=== PATIENT | female | born 1970 | race Caucasian/White ===

== ENCOUNTER 2018-07-30 11:19 | Emergency (ER) | payer OTHER ==
[~2018-07-30] VITALS: Ht 162.6 cm; Wt 73.0 kg
[2018-07-30 11:23] VITALS: BP 147/68; PULSE 72; RESP 18; Ht 162.6 cm; Wt 73.0 kg
--- NOTE | 2018-07-30 13:07 | ERD ---
ER Documentation Chief Complaint Chief Complaint rt side lower back pain radiating to rt leg x 4 days HPI 58-year-old female, presents to the emergency department, complaining of worsening of right lower back pain radiating to the right lower extremity, that started 2 weeks ago and has been getting worse during the last 4 days. No history of recent trauma. The pain is dull, constant, worsened by flexion and lateral rotation. The patient denies distal weakness, numbness or tingling, no incontinence. The patient has been taking ibuprofen without improvement of the symptoms. No history of fever, chills or rashes. No abdominal pain. ROS All systems reviewed and are negative except as per history of present illness. Medications Home Meds Active Scripts Ciprofloxacin Hcl* (Ciprofloxacin Hcl*) 250 Mg Tablet, 250 MG PO BID, #14 TAB Prov:MICHAEL ROPER MD 07/30/18 Baclofen* (Baclofen*) 10 Mg Tablet, 10 MG PO QHS for 10 Days, #10 TAB Prov:MICHAEL ROPER MD 07/30/18 Ibuprofen* (Motrin*) 400 Mg Tab, 400 MG PO Q6H PRN for PAIN AND OR ELEVATED TEMP, #30 TAB Prov:MICHAEL ROPER MD 07/30/18 Allergies Allergies: Coded Allergies: No Known Allergy (Unverified , 07/30/18) PMhx/Soc Medical and Surgical Hx: pt denies Medical Hx, pt denies Surgical Hx Hx Alcohol Use: No Hx Substance Use: No Hx Tobacco Use: No Smoking Status: Never smoker FmHx Family History: No diabetes, No coronary disease Physical Exam Vitals Vital Signs Date Temp Pulse Resp B/P (MAP) Pulse Ox O2 O2 Flow FiO2 Time Delivery Rate 07/30/18 98.0 72 18 147/68 98 11:23 (94) Physical Exam Patient is in no acute distress, vital signs stable. Alert and fully oriented. EYES: PERRLA, EOMI, Sclera and conjunctiva appear normal. EARS: Canals clear, tympanic membranes WNL THROAT: Normal oropharynx. NECK: Supple, No lymphadenopathy. Full ROM without pain or tenderness. HEART: RRR, no rubs, murmurs, clicks or gallops. LUNGS: Clear to auscultation. ABDOMEN: Soft, non-tender without masses or hepatosplenomegaly. EXTREMITIES: No edema bilaterally. BACK: Normal inspection, no bruises, no rashes, no deformity, decreased range of motion for lateral rotation and flexion. No vertebral tenderness, bilateral lower muscle spasm. NEURO: Cranial nerves grossly intact, no motor or sensory deficit Results 24 hrs Laboratory Tests Test 07/30/18 13:27 07/30/18 13:29 Bedside Urine pH (LAB) 5.5 Bedside Urine Protein (LAB) 1+ Bedside Urine Glucose (UA) 0.50% Bedside Urine Ketones (LAB) 4+ Bedside Urine Blood Negative Bedside Urine Nitrite (LAB) Positive Bedside Urine Leukocyte Esterase (L Negative POC Beta HCG, Qualitative NEGATIVE Current Medications Medications Dose Sig/Claude Start Time Status Last (Trade) Ordered Route PRN Stop Time Admin Dose Reason Admin Ketorolac 30 mg ONCE STAT 07/30/18 DC 07/30/18 Tromethamine IM 13:13 13:42 (Toradol) 07/30/18 13:26 Patient: ANABELA CHAN : 1970 Age: 48 Sex: F MR #: [id number] DOS: 07/30/18 1313 Ordering MD: MICHAEL ROPER MD Location: FTE Room/Bed: PROCEDURE: XR Lumbar Spine. CLINICAL INDICATION: Acute low back pain TECHNIQUE: Three views of the lumbar spine were obtained. COMPARISON: None. FINDINGS: Alignment of the lumbar spine is normal. Normal lumbar lordosis is preserved. Vertebral body heights are maintained. There is moderate intervertebral disc space narrowing at L4-L5. The remaining intervertebral disc spaces are preserved. There is mild to moderate lower lumbar spine facet osteoarthritis. No fracture or subluxation is identified. IMPRESSION: 1. Degenerative changes of the lower lumbar spine as above. Procedures/MDM At the time of discharge, patient nontoxic, ambulating, vital signs stable, no gross neurologic deficit. differential diagnosis include but not limited to: lumbar sprain/strain, sciatica, herniated disk, UTI less likely pyelo, kidney stone. Neurovascular exam grossly intact. no clinical findings suggestive of acute infectious process, no acute deformity, no edema, no rashes. Physical examination and clinical presentation consistent most likely with urinary tract infection and degenerative disc disease. During the ED course the patient received treatment with Toradol IM presenting overall improvement of the symptoms. Results and clinical impression discussed with the patient who agrees with management. The patient is stable to be treated outpatient and will be discharged home with recommendations and close monitoring The patient was informed that the evaluation in the emergency department has been done to rule out an acute emergency, therefore, chronic conditions like malignancy or autoimmune diseases have not been evaluated; therefore, the patient was instructed to follow up with the primary care provider in the next 48h. If symptoms persist, worsen or new symptoms develop, then patient should return to the ED immediately. Instructions explained and given to patient with acknowledgment and demonstrated understanding. Disclaimer: Inadvertent spelling and grammatical errors are likely due to EHR/dictation software use and do not reflect on the overall quality of patient care. Also, please note that the electronic time recorded on this note does not necessarily reflect the actual time of the patient encounter. Departure Diagnosis: Primary Impression: Degenerative joint disease of low back Additional Impression: UTI (urinary tract infection) Condition: Stable Additional Instructions: Muchas adele por [facility] para vasquez servicio. Esperamos que en vasquez visita a la grant de emergencia vasquez problema medico haya sido solucionado y que se sienta mucho mejor. Para estar seguros que vasquez mejoria sigue en proceso, le pedimos el favor de hacer donald lon de seguimiento medico con vasquez doctor primario en los proximos 2-4 martinez. Lleve con usted estos documentos y las medicinas recetadas. Si thanh sintomas empeoran, NO SE ESPERE, por favor regrese a grant de emergencia INMEDIATAMENTE. En asuncion que usted no tenga un mdico de atencin primaria: Llame al mdico o clnica comunitaria de referencia que aparece abajo trev la s horas de consultorio para hacer donald lon para que le vean. CLINICAS: [facility] [phone] [facility] [phone] [facility] [phone] [address] [facility] [phone] [address] [facility] [phone] [address] [facility]. [phone] MICHAEL BRICE MD July 30, 2018 13:07
[2018-07-30] MEDS ORDERED: KETOROLAC 30 MG INJ IM STA (13:13)
[2018-07-30] MEDS ORDERED: IBUP-1561 PO (14:04)
[2018-07-30] MEDS ORDERED: CIPR-193 PO (14:04)
[2018-07-30] MEDS ORDERED: BACL10TA PO (14:04)
== END 2018-07-30 13:25 | disposition home or self-care (01) ==
LOC: FTE 11:19 → EDBD 11:19 → FTE 13:25
DX: M47.896 Other spondylosis, lumbar region (principal); N39.0 Urinary tract infection, site not specified
CPT/HCPCS: 72100; 81003; 81025; 96372; J1885; Z7502

== ENCOUNTER 2018-08-28 15:26 | Emergency (ER) | payer OTHER ==
[~2018-08-28] VITALS: Ht 157.5 cm; Wt 74.0 kg
[~2018-08-28 15:26] MED LIST: BACL10TA PO; CIPR-193 PO; IBUP-1561 PO
[2018-08-28 15:29] VITALS: Ht 157.5 cm; Wt 74.0 kg
--- NOTE | 2018-08-28 16:27 | ERD ---
ER Documentation Chief Complaint Chief Complaint left lower back pain to the leg, sent by pcp HPI Patient is a 48-year-old female, past medical history of hysterectomy secondary to "precancer uterus", DM Type IIm who presents the ER for concerns of right- sided pelvic pain and right lower back pain radiating down her right leg x1 mo nth. Patient states she was seen here 1 month ago for her lower back pain. Patient was diagnosed with sciatica. Patient states she followed up with her primary care provider, Remy Pruitt, following her ER visit. Patient states at that time pelvic ultrasound was completed on 07-25-18. Today patient went to follow-up with her primary care physician to discuss ultrasound findings. Patient brings in ultrasound report which shows that patient is "status post hysterectomy. Several anechoic lesions were noted within the right ovary. There was no vascular flow noted. Likely represents cysts. However, cystic neoplasm cannot be entirely excluded. Follow-up in 1 to 2 months is recommended to ensure stability. Correlate with test to exclude ectopic ". Per referral note that patient brings in with her, patient has not followed up with MARKETING AND DEVELOPMENT COORDINATOR despite being given referral in 08/07/18. Patient denies any fevers or chills. Patient denies any nausea or vomiting. Patient denies any dysuria, frequency or urgency or hematuria. Patient states she does have an appointment with an MARKETING AND DEVELOPMENT COORDINATOR, does not recall name, next week. ROS All systems reviewed and are negative except as per history of present illness. Medications Home Meds Active Scripts Hydrocodone/Acetaminophen (Hilltop 5-325 Tablet) 1 Each Tablet, 1 TAB PO Q6H PRN for PAIN, #7 TAB Prov:MARCOS GUILLERMO PA-C 08/28/18 Ciprofloxacin Hcl* (Ciprofloxacin Hcl*) 250 Mg Tablet, 250 MG PO BID, #14 TAB Prov:MICHAEL ROPER MD 07/30/18 Baclofen* (Baclofen*) 10 Mg Tablet, 10 MG PO QHS for 10 Days, #10 TAB Prov:MICHAEL ROPER MD 07/30/18 Ibuprofen* (Motrin*) 400 Mg Tab, 400 MG PO Q6H PRN for PAIN AND OR ELEVATED TEMP, #30 TAB Prov:MICHAEL ROPER MD 07/30/18 Allergies Allergies: Coded Allergies: No Known Allergy (Unverified , 07/30/18) PMhx/Soc Hx Alcohol Use: No Hx Substance Use: No Hx Tobacco Use: No FmHx Family History: No diabetes Physical Exam Vitals Vital Signs Date Temp Pulse Resp B/P (MAP) Pulse Ox O2 O2 Flow FiO2 Time Delivery Rate 08/28/18 97.5 69 18 115/74 100 Room Air 21:52 (88) 08/28/18 98.2 80 20 120/71 98 15:29 (87) Physical Exam GENERAL: Well-developed, well-nourished female. Appears in no acute distress. Speaking in full sentences. HEAD: Normocephalic, atraumatic. EYES: Pupils are equally reactive bilaterally. EOMs grossly intact. No conjunctival erythema. ENT: Moist mucous membranes. No uvula deviation. No kissing tonsils. NECK: Supple. No meningismus. Normal range of motion of the neck. LUNG: Clear to auscultation bilaterally. No rhonchi, wheezing, rales or coarse breath sounds. HEART: Regular rate and rhythm. No murmurs, rubs or gallops. ABDOMEN: Soft, nondistended. Tender to palpation in the right lower quadrant.. Positive bowel sounds in all four quadrants. No rebound tenderness, no guarding. (-) McBurney's point tenderness. No CVA tenderness. BACK: No midline tenderness. Tender to palpation over the right paraspinal lumbar muscles. Positive straight leg raise on the right. EXTREMITIES: Equal pulses bilaterally. No peripheral clubbing, cyanosis or edema. No unilateral leg swelling. NEUROLOGIC: Alert and oriented. Moving all four extremities without any difficulty. Normal speech. Steady gait. SKIN: Normal color. Warm and dry. No rashes or lesions. Result Diagram: 08/28/18190908/28/181909 Results 24 hrs Laboratory Tests Test 08/28/18 16:48 08/28/18 16:52 08/28/18 19:10 Urine Color STRAW Urine Clarity CLEAR Urine pH 5.0 Urine Specific [place] 1.037 Urine Ketones 1+ mg/dL Urine Nitrite NEGATIVE mg/dL Urine Bilirubin NEGATIVE mg/dL Urine Urobilinogen NEGATIVE mg/dL Urine Leukocyte Esterase TRACE Jackie/ul Urine Microscopic RBC 1 /HPF Urine Microscopic WBC 10 /HPF Urine Squamous Epithelial Cells FEW /HPF Urine Hemoglobin NEGATIVE mg/dL Urine Glucose 3+ mg/dL Urine Total Protein NEGATIVE mg/dl POC Beta HCG, Qualitative NEGATIVE White Blood Count 8.8 10^3/ul Red Blood Count 4.48 10^6/ul Hemoglobin 13.2 g/dl Hematocrit 36.9 % Mean Corpuscular Volume 82.4 fl Mean Corpuscular Hemoglobin 29.5 pg Mean Corpuscular 35.8 g/dl Hemoglobin Concent Red Cell Distribution Width 12.4 % Platelet Count 286 10^3/UL Mean Platelet Volume 10.3 fl Immature Granulocytes % 0.700 % Neutrophils % 59.2 % Lymphocytes % 32.3 % Monocytes % 5.2 % Eosinophils % 1.9 % Basophils % 0.7 % Nucleated Red Blood Cells % 0.0 /100WBC Immature Granulocytes # 0.060 10^3/ul Neutrophils # 5.2 10^3/ul Lymphocytes # 2.8 10^3/ul Monocytes # 0.5 10^3/ul Eosinophils # 0.2 10^3/ul Basophils # 0.1 10^3/ul Nucleated Red Blood Cells # 0.0 10^3/ul Sodium Level 137 mmol/L Potassium Level 3.8 mmol/L Chloride Level 101 mmol/L Carbon Dioxide Level 26 mmol/L Anion Gap 10 Blood Urea Nitrogen 14 mg/dl Creatinine 0.44 mg/dl Est Glomerular Filtrat > 60 mL/min Rate mL/min Glucose Level 243 mg/dl Calcium Level 8.8 mg/dl Total Bilirubin 0.7 mg/dl Direct Bilirubin 0.00 mg/dl Indirect Bilirubin 0.7 mg/dl Aspartate Amino 19 IU/L Transf (AST/SGOT) Alanine 32 IU/L Aminotransferase (ALT/SGPT) Alkaline Phosphatase 77 IU/L Total Protein 7.3 g/dl Albumin 4.3 g/dl Globulin 3.00 g/dl Albumin/Globulin Ratio 1.43 CA 19-9 Antigen 25.1 U/ml CA 125 Antigen 5.7 U/ml Current Medications Medications Dose Sig/Claude Start Time Status Last (Trade) Ordered Route PRN Stop Time Admin Dose Reason Admin 1 tab ONCE ONCE 08/28/18 DC 08/28/18 Acetaminophen PO 16:30 16:48 / 08/28/18 16:31 Hydrocodone Bitart (Hilltop (5/325)) Procedures/MDM ED COURSE: The patient was stable throughout ED course. I kept the patient and/or family informed of laboratory and diagnostic imaging results throughout the ED course. DIAGNOSTIC IMAGING: Read by radiologist. [address] [address] Radiology Main Line: [phone] DIAGNOSTIC IMAGING REPORT Patient: ANABELA MONTENEGRO : 1970 Age: 48 Sex: F MR #: [id number] DOS: 08/28/18 1617 Ordering MD: MARCOS GUILLERMO PA-C Location: FTE Room/Bed: PROCEDURE: US Pelvis Non-OB CLINICAL INDICATION: Pelvic pain TECHNIQUE: Images were taken during real time trans pelvic interrogation. Color-flow and Doppler interrogation of the ovaries was performed. COMPARISON: None FINDINGS: Uterus: The uterus is not identified compatible with history of previous partial hysterectomy. Ovaries: The right ovary is not identified. The left ovary measures 3.1 x 2.5 x 1.7 cm and and contains a 1.4 cm simple- appearing cyst. Vascular flow is demonstrated in the left ovary on Doppler.. Adnexa: No adnexal mass is identified. Free intraperitoneal fluid: None visualized. IMPRESSION: 1. Absent uterus compatible with history of previous partial hysterectomy. 2. The right ovary is not identified. A 1.4 cm simple left ovarian cyst is evident. Vascular flow is demonstrated in the left ovary. 3. No adnexal mass or free fluid is identified. Physician Asaf Date Time Electronically viewed and signed by Physician Asaf on 08/28/2018 17:22 RH/ CC: MARCOS GUILLERMO PA-C [id number] Patient: ANABELA MONTENEGRO : 1970 Age: 48 Sex: F MR #: [id number] DOS: 08/28/18 1903 Ordering MD: MARCOS GUILLERMO PA-C Location: FTE Room/Bed: PROCEDURE: US Pelvis. CLINICAL INDICATION: Right pelvic pain TECHNIQUE: Multiple sonographic images of the pelvis were obtained utilizing endovaginal technique. The images were reviewed on a PACS workstation. COMPARISON: None. FINDINGS: The uterus appears to be surgically absent The right ovary appears normal and measures 2.6 x 1.6 x 1.4 cm. Blood flow is present. The left ovary is not visualized transvaginally. Right ovarian blood flow is documented. There is no significant free fluid in the pelvis. IMPRESSION: 1. Sonographically unremarkable right ovary with no evidence of torsion. 2. Apparent surgical absence of the uterus. 3. Nonvisualization of the left ovary transvaginally. RPTAT:AAJJ Physician Kevin Date Time Electronically viewed and signed by Physician Kevin on 08/28/2018 20:22 GW/ CC: MARCOS GUILLERMO PA-C [id number] PROCEDURES: None. MEDICATIONS GIVEN: Hilltop Patient tolerated medication well with no adverse reactions. Patient reported improvement in pain. MEDICAL DECISION MAKING: This is a 48-year-old female, past medical history of hysterectomy, DM type II, who presents the ER for concerns of right-sided pelvic pain and right-sided lower back pain radiating down her right leg x1 month. On 07-25-18, patient had a pelvic ultrasound which was ordered by her primary care provider. This ultrasound showed no vascular flow to the right ovary. Vital signs were reviewed. Patient was afebrile. Patient was not hypoxic. On exam, patient was noted to have mild tenderness to the right lower quadrant. No peritoneal signs were noted. Repeat ultrasound was obtained. Initial ultrasound was done transabdominally and right ovary was not visualized. A 1.4 cm simple cyst was noted on the left ovary and vascular flow was noted on this ultrasound. I discussed findings with my supervising physician Dr. Willis, who advised me to contact the MARKETING AND DEVELOPMENT COORDINATOR on-call Dr. Whittington. Dr. Whittington, came down to the ER and examined the patient. She advised me to repeat ultrasound transvaginally. Blood work was also obtained per Dr Whittington. She advised me to order cancer markers and advised to the patient to contact medical records for results in 2 to 3 days. Patient was advised to follow-up with her MARKETING AND DEVELOPMENT COORDINATOR when she receives this results. Dr. Whittington stated that she would sign out case to oncoming OBGYN. CBC showed no evidence of systemic infection or severe anemia. CMP showed no severe electrolyte abnormalities, acidosis, alkalosis, renal injury or liver injury. Patient's glucose is noted to be 243 however bicarb is within normal limits. Urine showed 1+ ketones. No evidence of DKA. Repeat ultrasound showed showed no evidence of ovarian torsion to the right ovary. This repeat ultrasound was discussed with oncoming MARKETING AND DEVELOPMENT COORDINATOR Dr. Hernandez who advised me to have patient follow-up with her MARKETING AND DEVELOPMENT COORDINATOR for further management of her symptoms. At this time, patient's presentation is most consistent with lower back pain as well as pelvic pain. Low suspicion for ectopic , ovarian torsion, tibial ovarian abscess, fibroid, nephrolithiasis, pyelonephritis, UTI, appendic itis, obstruction, cauda equina, epidural abscess, epidural hematoma. Patient was nontoxic, [id number] prior to discharge. PRESCRIPTIONS: Hilltop The patient has been prescribed Hilltop during this encounter. The patient has been warned about the use of narcotics. The patient should not drive or operate heavy machinery while taking this medication. The patient was also warned about the addictive properties of narcotic medications. Prescription of Narcan was given to the patient. DISCHARGE: At this time, patient is stable for discharge and outpatient management. I have instructed the patient to follow-up with his/her primary care physician in 1-2 days. I have discussed with the patient the possibility of needing to see a specialist for further workup and diagnostic studies if the pain persists. I have instructed the patient to promptly return to the ER at any time for any new or worsening symptoms including increased pain, nausea, vomiting, vaginal bleeding, weakness or fever. The patient and/or family expressed understanding of and agreement with this plan. All questions were answered. Home care instructions were provided. Disclaimer: Inadvertent spelling and grammatical errors are likely due to EHR/dictation software use and do not reflect on the overall quality of patient care. Also, please note that the electronic time recorded on this note does not necessarily reflect the actual time of the patient encounter. Departure Diagnosis: Primary Impression: Pelvic pain Additional Impression: Lower back pain Chronicity: acute Back pain laterality: right Sciatica presence: with sciatica Sciatica laterality: sciatica of right side Qualified Codes: M54.41 - Lumbago with sciatica, right side Patient Instructions: What Are Ovarian Cysts? Referrals: COMMUNITY CLINICS YOU HAVE RECEIVED A MEDICAL SCREENING EXAM AND THE RESULTS INDICATE THAT YOU DO NOT HAVE A CONDITION THAT REQUIRES URGENT TREATMENT IN THE EMERGENCY DEPARTMENT. FURTHER EVALUATION AND TREATMENT OF YOUR CONDITION CAN WAIT UNTIL YOU ARE SEEN IN YOUR DOCTORS OFFICE WITHIN THE NEXT 1-2 DAYS. IT IS YOUR RESPONSIBILITY TO MAKE AN APPOINTMENT FOR FOLOW-UP CARE. IF YOU HAVE A PRIMARY DOCTOR --you should call your primary doctor and schedule an appointment IF YOU DO NOT HAVE A PRIMARY DOCTOR YOU CAN CALL OUR PHYSICIAN REFERRAL HOTLINE AT IF YOU CAN NOT AFFORD TO SEE A PHYSICIAN YOU CAN CHOSE FROM THE FOLLOWING [facility] [address] [facility] [address] [facility] [facility] [facility] [address] [facility] [address] [facility] [address] [facility]. [facility]. [address] [facility]. [facility] YOU HAVE RECEIVED A MEDICAL SCREENING EXAM AND THE RESULTS INDICATE THAT YOU DO NOT HAVE A CONDITION THAT REQUIRES URGENT TREATMENT IN THE EMERGENCY DEPARTMENT. FURTHER EVALUATION AND TREATMENT OF YOUR CONDITION CAN WAIT UNTIL YOU ARE SEEN IN YOUR DOCTORS OFFICE WITHIN THE NEXT 1-2 DAYS. IT IS YOUR RESPONSIBILITY TO MAKE AN APPOINTMENT FOR FOLOW-UP CARE. IF YOU HAVE A PRIMARY DOCTOR --you should call your primary doctor and schedule and appointment IF YOU DO NOT HAVE A PRIMARY DOCTOR YOU CAN CALL OUR PHYSICIAN REFERRAL HOTLINE AT . IF YOU CAN NOT AFFORD TO SEE A PHYSICIAN YOU CAN CHOSE FROM THE FOLLOWING [facility]: [facility] [address] [place] [address] [facility] [address] [place] [address] [facility] + [facility] [address] [place] [address] MARKETING AND DEVELOPMENT COORDINATOR [place] [address] [facility] [address] [place] [address] OFFICE FAX , [facility] [address] [place] [address] [address] MACEDO, [place] [address] [place] [address] [address] PAULA, [facility] [address] [facility] [facility] [address] [address] FLOOD, [facility] [address] [place] [address] [facility] [address] [place] [address] [phone] [address] [facility] [address] - [address] WELLS, KARINA [address] [facility]. [address] [address] [address] D[place]AN, [place] [address] [facility]. [address], [facility] [address] [address] [facility] [address] [place], [place] [id number] Additional Instructions: Call medical records in 2-3 days for pending lab results. Follow up with your OBGYN for further management of findings. Call your primary care doctor TOMORROW for an appointment during the next 1-2 days.See the doctor sooner or return here if your condition worsens before your appointment time. MARCOS GUILLERMO PA-C Aug 28, 2018 16:27
[2018-08-28] MEDS ORDERED: HYDROCODONE/APAP (5/325) TAB PO ONE (16:30)
--- NOTE | 2018-08-28 19:59 | CONS ---
Assessment/Plan Assessment/Plan Hospital Course (Demo Recall) 48-year-old female with right-sided chronic pelvic pain, Ultrasound in July 28, 2018 by her primary care physician consistent with adnexal structure in the right side, questionable for ovarian neoplasm Suggested to have a follow-up with repeat pelvic ultrasound Pelvic ultrasound repeated today, imaging was done transabdominally and right ovary was not visualized. There was no evidence of adnexal mass. Left ovary with a small cyst and normal flow to the left ovary. Abdominal exam unremarkable. Patient does not show any evidence of acute abdomen. She has been comfortable with Leakey pill without any IV pain medication. Etiology of right-side pelvic pain uncleard Recommended to proceed with transvaginal ultrasound for evaluation of her right adnexa as well as blood flow to the right adnexa. Clinical picture does not correlate with ovarian torsion History of right-sided adnexal structure, questionable for neoplasm. We will order Ca1 25 CA-19-9 Patient needs to have a follow-up with her primary [employer] as outpatient After discharge from the hospital Transvaginal ultrasound requested and is still pending I discussed with POWDER ROOM ATTENDANT and OB hospitalist Dr. Scott about follow up of the ultrasound. Plan of care discussed with the patient as well. She understands in the event of discharge from the emergency room needs to have follow-up with primary care physician after discharge from the hospital in the next few days, with the results of tumor markers from the [facility] patient and her daughter verbalized understanding.. Consultation Date/Type/Reason Admit Date/Time August 28, 2018 Date of Consultation: Aug 28, 2018 Type of Consult [employer] consultation Reason for Consultation R/o Ovarian torsion Date/Time of Note DATE: 08/28/18 TIME: 19:22 Hx of Present Illness 48-year-old .female here today was sent by her primary care physician after she had a pelvic ultrasound for follow-up of right sided ovarian cyst. Patient reports right-sided lower abdominal pain with radiation to the thigh constantly for the past month. She has brought her recent ultrasound report from her primary care physician to emergency room and reviewed. Exam consistent with 1.5 x 1.7 cm right adnexal lesion cannot rule out, neoplasm. Patient had a transabdominal ultrasound today in the emergency room and right ovary was not visualized. Left ovary visualized with a small 1.5 cm ovarian cyst with normal blood flow to the ovary. Also uterus was not visualized consistent with post hysterectomy status. Ultrasound was not done. I was consulted for [employer]AT[employer] evaluation. Patient reports the pain in the right side for the past month constantly every day. Pain radiates to the right lower thigh. Has currently received Leakey in the emergency room 1 pill that helps with the pain. Constitutional: No no complaints, No improved, No chills, No diaphoresis, No disoriented, No febrile, No poor po, No requiring IVF, No requiring O2, No other Eyes: No no complaints, No pain, No discharge, No redness, No visual change, No other ENT: No no complaints, No bleeding, No pain, No congestion, No discharge, No dysphagia, No sore throat, No other Respiratory: No no complaints, No pain, No cough, No pleuritic pain, No shortness of breath, No sputum, No wheezing, No other Cardiovascular: No no complaints, No chest pain, No edema, No lightheadedness, No orthopenea, No palpitations, No paroxysmal nocturnal dyspnea, No other Gastrointestinal: pain Genitourinary: other; No no complaints, No bleeding, No dysuria, No discharge, No flank pain, No hematuria Musculoskeletal: No no complaints, No back pain, No bone/joint pain, No neck pain, No restricted range of motion, No swelling, No other Skin: No no complaints, No bruising, No erythema, No laceration, No pruritis, No rash, No skin lesions, No other Neurologic: No no complaints, No confusion, No dizziness, No focal-weakness, No headache, No syncope, No seizure, No other Endocrine: No no complaints, No polyuria, No polydypsia, No dry skin, No temp intolerance, No other Lymphatic: No no complaints, No adenopathy, No tender nodes, No lymphadema, No other Psychological: No no complaints, No nl mood/affect, No anxiety, No confusion, No depression, No suicidal, No other Immunologic: No no complaints, No immunodeficiency, No pruritis, No rhinitis, No urticaria, No other Past Medical History Medical history: History of cervical dysplasia, status post hysterectomy History of diabetes Stroke hypercholesterolemia Home Meds Active Scripts Ciprofloxacin Hcl* (Ciprofloxacin Hcl*) 250 Mg Tablet, 250 MG PO BID, #14 TAB Prov:MICHAEL ROPER MD 07/30/18 Baclofen* (Baclofen*) 10 Mg Tablet, 10 MG PO QHS for 10 Days, #10 TAB Prov:MICHAEL ROPER MD 07/30/18 Ibuprofen* (Motrin*) 400 Mg Tab, 400 MG PO Q6H PRN for PAIN AND OR ELEVATED TEMP, #30 TAB Prov:MICHAEL ROPER MD 07/30/18 Allergies: Coded Allergies: No Known Allergy (Unverified , 07/30/18) Past Surgical History Past surgical history: Status post hysterectomy for cervical dysplasia without oophorectomy about 10 years ago Status post abdominoplasty Family History Significant Family History: other (Patient reports family history of cancer. Mother with throat cancer.) Social History Alcohol Use: none Smoking Status: Never smoker Drug Use: none Other Social History Patient denies of smoking drinking alcohol or using any drugs Exam/Review of Systems Exam Vitals Vital Signs Date Temp Pulse Resp B/P (MAP) Pulse Ox O2 O2 Flow FiO2 Time Delivery Rate 08/28/18 98.2 80 20 120/71 98 15:29 (87) Constitutional: alert, oriented, well developed Psych: no complaints, nl mood/affect Head: normocephalic, atraumatic Eyes: nl conjunctiva, EOMI, nl lids Neck: supple, non-tender Respiratory: clear to auscultation, normal air movement Cardiovascular: regular rate and rhythm, nl pulses Gastrointestinal: soft, nl liver, spleen, non-tender Genitourinary - Female: other (External genitalia within normal limits status post on examination: No cervix noted, status post hysterectomy. Normal vagina. No abnormal discharge. Bimanual examination: There is tenderness in the left fatPalpation with a slight fullness as well as tenderness in the right adnexa noted. No fullness in the right adnexa noted.) Musculoskeletal: nl extremities to inspection, nl gait and stance Extremities: normal pulses Neurological: ENGINEERING TEST SPECIALIST II-XII intact, nl mental status, nl speech Results Results 24hrs Laboratory Tests Test 08/28/18 16:48 08/28/18 16:52 08/28/18 19:10 Urine Color STRAW Urine Clarity CLEAR Urine pH 5.0 Urine Specific [place] 1.037 H Urine Ketones 1+ H Urine Nitrite NEGATIVE Urine Bilirubin NEGATIVE Urine Urobilinogen NEGATIVE Urine Leukocyte Esterase TRACE A Urine Microscopic RBC 1 Urine Microscopic WBC 10 H Urine Squamous Epithelial Cells FEW Urine Hemoglobin NEGATIVE Urine Glucose 3+ H Urine Total Protein NEGATIVE POC Beta HCG, Qualitative NEGATIVE White Blood Count Pending Red Blood Count Pending Hemoglobin Pending Hematocrit Pending Mean Corpuscular Volume Pending Mean Corpuscular Hemoglobin Pending Mean Corpuscular Hemoglobin Concent Pending Red Cell Distribution Width Pending Platelet Count Pending Mean Platelet Volume Pending Imaging Imaging PROCEDURE: US Pelvis Non-OB CLINICAL INDICATION: Pelvic pain TECHNIQUE: Images were taken during real time trans pelvic interrogation. Color-flow and Doppler interrogation of the ovaries was performed. COMPARISON: None FINDINGS: Uterus: The uterus is not identified compatible with history of previous partial hysterectomy. Ovaries: The right ovary is not identified. The left ovary measures 3.1 x 2.5 x 1.7 cm and and contains a 1.4 cm simple-appe aring cyst. Vascular flow is demonstrated in the left ovary on Doppler.. Adnexa: No adnexal mass is identified. Free intraperitoneal fluid: None visualized. IMPRESSION: 1. Absent uterus compatible with history of previous partial hysterectomy. 2. The right ovary is not identified. A 1.4 cm simple left ovarian cyst is evident. Vascular flow is demonstrated in the left ovary. 3. No adnexal mass or free fluid is identified. NENITA RUTH MD Aug 28, 2018 19:51
--- NOTE | 2018-08-28 21:23 | QN ---
Documentation Comment PROCEDURE: US Pelvis Non-OB CLINICAL INDICATION: Pelvic pain TECHNIQUE: Images were taken during real time trans pelvic interrogation. Color-flow and Doppler interrogation of the ovaries was performed. COMPARISON: None FINDINGS: Uterus: The uterus is not identified compatible with history of previous partial hysterectomy. Ovaries: The right ovary is not identified. The left ovary measures 3.1 x 2.5 x 1.7 cm and and contains a 1.4 cm simple- appearing cyst. Vascular flow is demonstrated in the left ovary on Doppler.. Adnexa: No adnexal mass is identified. Free intraperitoneal fluid: None visualized. IMPRESSION: 1. Absent uterus compatible with history of previous partial hysterectomy. 2. The right ovary is not identified. A 1.4 cm simple left ovarian cyst is evident. Vascular flow is demonstrated in the left ovary. 3. No adnexal mass or free fluid is identified. Physician Asaf Date Time Electronically viewed and signed by Physician Asaf on 08/28/2018 17:22 RH/ CC: MARCOS GUILLERMO PA-C [id number] PROCEDURE: US Pelvis. CLINICAL INDICATION: Right pelvic pain TECHNIQUE: Multiple sonographic images of the pelvis were obtained utilizing endovaginal technique. The images were reviewed on a PACS workstation. COMPARISON: None. FINDINGS: The uterus appears to be surgically absent The right ovary appears normal and measures 2.6 x 1.6 x 1.4 cm. Blood flow is present. The left ovary is not visualized transvaginally. Right ovarian blood flow is documented. There is no significant free fluid in the pelvis. IMPRESSION: 1. Sonographically unremarkable right ovary with no evidence of torsion. 2. Apparent surgical absence of the uterus. 3. Nonvisualization of the left ovary transvaginally. RPTAT:AAJJ Vahe Flower Physician Date Time Electronically viewed and signed by Vahe Flower Physician on 08/28/2018 20:22 GW/ CC: MARCOS GUILLERMO PA-C [phone] Hematology - 72 Hrs Test 08/28/18 19:10 Hematocrit 36.9 % (37.0-47.0) L Hemoglobin 13.2 g/dl (12.0-16.0) Mean Corpuscular Hemoglobin 29.5 pg (29.0-33.0) Mean Corpuscular Hemoglobin Concent 35.8 g/dl (32.0-37.0) Mean Corpuscular Volume 82.4 fl (82.0-101.0) Mean Platelet Volume 10.3 fl (7.4-10.4) Platelet Count 286 10^3/UL (140-415) Red Blood Count 4.48 10^6/ul (4.20-5.40) Red Cell Distribution Width 12.4 % (11.5-14.5) White Blood Count 8.8 10^3/ul (4.8-10.8) Chemistry Test 08/28/18 16:52 08/28/18 19:10 POC Beta HCG, Qualitative NEGATIVE (NEGATIVE) Sodium Level 137 mmol/L (135-144) Potassium Level 3.8 mmol/L (3.5-5.1) Chloride Level 101 mmol/L (97-110) Carbon Dioxide Level 26 mmol/L (21-31) Anion Gap 10 (5-13) Blood Urea Nitrogen 14 mg/dl (7-20) Creatinine 0.44 mg/dl (0.44-1.00) Est Glomerular Filtrat Rate mL/min > 60 mL/min (>60) Glucose Level 243 mg/dl (70-220) H Calcium Level 8.8 mg/dl (8.4-10.2) Total Bilirubin 0.7 mg/dl (0.2-1.3) Direct Bilirubin 0.00 mg/dl (0.00-0.20) Indirect Bilirubin 0.7 mg/dl (0-1.1) Aspartate Amino Transf (AST/SGOT) 19 IU/L (15-46) Alanine Aminotransferase (ALT/SGPT) 32 IU/L (13-69) Alkaline Phosphatase 77 IU/L (42-121) Total Protein 7.3 g/dl (6.1-8.1) Albumin 4.3 g/dl (3.3-4.9) Globulin 3.00 g/dl (1.3-3.2) Albumin/Globulin Ratio 1.43 CA 19-9 Antigen 25.1 U/ml (0.0-37.0) CA 125 Antigen 5.7 U/ml (0.0-35.0) Pelvic ultrasound and lab results reviewed with no evidence of torsion Patient can be discharged home and follow-up with her sales support advisor as outpatient PABLITO BATISTA MD Aug 28, 2018 21:23
[2018-08-28] MEDS ORDERED: HYDR-4011 PO (21:37)
[2018-08-28 21:52] VITALS: BP 115/74; PULSE 69; RESP 18
== END 2018-08-28 21:55 | disposition home or self-care (01) ==
LOC: FTE 15:26
DX: M54.41 Lumbago with sciatica, right side (principal); R10.2 Pelvic and perineal pain; E11.9 Type 2 diabetes mellitus without complications
CPT/HCPCS: 36415; 76830; 76856; 80053; 81001; 81025; 85025; 86301; 86304; 86305; Z7502; Z7610

== ENCOUNTER → 2018-09-13 | Emergency (ER) | payer OTHER ==
[~2018-09-13] VITALS: Wt 70.0 kg
[~2018-09-13] MED LIST changes: +HYDR-4011 PO; +HYDROCODONE/APAP (5/325) TAB PO ONE; +MED4DP PO; +NAPR-985 PO
[2018-09-13 20:08] VITALS: BP 140/74; PULSE 79; RESP 20
--- NOTE | 2018-09-14 04:01 | ERD ---
ER Documentation Chief Complaint Chief Complaint r ankle pain non traumatic and mild swelling for the past few months HPI This is a 48-year-old Macedonian-speaking female presents to the ED complaining of atraumatic right ankle and foot pain for the past several months. Patient states it "feels broken." She states pain is worse when walking. She has temporary relief with Motrin. She states she has a history of sciatica and has been evaluated for this but states today's symptoms are not similar. She denies any radiating pain from her lower back. Denies any numbness and tingling. She is requesting x-rays of her ankle. ROS All systems reviewed and are negative except as per history of present illness. Medications Home Meds Active Scripts Naproxen* (Naprosyn*) 500 Mg Tablet, 500 MG PO BID PRN for PAIN AND/OR INFLAMMATION, #30 TAB Prov:MIMI DODGE PA-C 09/13/18 Methylprednisolone* (Medrol* DOSE PACK) 4 Mg/Dose-Pack Tab.ds.pk, 4 MG PO . DIRECTED, #1 PACKET Prov:MIMI DODGE PA-C 09/13/18 Hydrocodone/Acetaminophen (Sentinel 5-325 Tablet) 1 Each Tablet, 1 TAB PO Q6H PRN for PAIN, #7 TAB Prov:MARCOS GUILLERMO PA-C 08/28/18 Ciprofloxacin Hcl* (Ciprofloxacin Hcl*) 250 Mg Tablet, 250 MG PO BID, #14 TAB Prov:MICHAEL ROPER MD 07/30/18 Baclofen* (Baclofen*) 10 Mg Tablet, 10 MG PO QHS for 10 Days, #10 TAB Prov:MICHAEL ROPER MD 07/30/18 Ibuprofen* (Motrin*) 400 Mg Tab, 400 MG PO Q6H PRN for PAIN AND OR ELEVATED TEMP, #30 TAB Prov:MICHAEL ROPER MD 07/30/18 Allergies Allergies: Coded Allergies: No Known Allergy (Unverified , 07/30/18) PMhx/Soc History of Surgery: Yes (HYSTERECTOMY,ABDOMINAL SX) Anesthesia Reaction: No Hx Cardiac Disorders: Yes (HYPERLIPIDEMIA) Hx Alcohol Use: No Hx Substance Use: No Hx Tobacco Use: No Smoking Status: Never smoker Physical Exam Vitals Vital Signs Date Temp Pulse Resp B/P (MAP) Pulse Ox O2 O2 Flow FiO2 Time Delivery Rate 09/13/18 97.9 79 20 140/74 98 20:08 (96) Physical Exam Const: No acute distress Head: Atraumatic Eyes: Normal Conjunctiva ENT: Normal External Ears, Nose and Mouth. Neck: Full range of motion. No meningismus. Resp: Clear to auscultation bilaterally Cardio: Regular rate and rhythm, no murmurs Abd: Soft, non tender, non distended. Normal bowel sounds Skin: No petechiae or rashes Back: No midline or flank tenderness Lower Extremity - right Skin: No laceration Compartments: Soft Motor: Full active range of motion hip/knee/ankle/foot Sensation: Intact to light touch FDWS/MF/LF/P surfaces. Bones: + lateral malleoli soft tissue swelling with mild tenderness to palpation, tenderness to the distal aspect of the tibia. No deformity. Joints: No effusion or laxity Pulses/Perfusion: 2+ DP, Capillary refill < 2 seconds Neur: Awake and alert Psych: Normal Mood and Affect Results 24 hrs Laboratory Tests Test 09/13/18 21:22 POC Beta HCG, Qualitative NEGATIVE Current Medications Medications Dose Sig/Claude Start Time Status Last (Trade) Ordered Route PRN Stop Time Admin Dose Reason Admin 1 tab ONCE ONCE 09/13/18 DC 09/13/18 Acetaminophen PO 21:30 21:30 / 09/13/18 21:31 Hydrocodone Bitart (Sentinel (5/325)) Procedures/MDM LABS & DIAGNOSTIC IMAGING: PROCEDURE: XR Tibia and Fibula. CLINICAL INDICATION: Pain. Trauma. TECHNIQUE: Three views of the right tibia and fibula are available for review. COMPARISON: None available FINDINGS: There is mild lateral malleolar subcutaneous soft tissue swelling. The right tibia and fibula are intact. No acute fracture or dislocation is seen. No radiopaque foreign body is identified. The soft tissues are otherwise unremarkable. IMPRESSION: Mild lateral malleolar subcutaneous tissue swelling. Otherwise negative. PROCEDURES: Rufino wrap splint Assessment: Neurovascularly intact post splint placement with good fit. PROCEDURE: XR Right Ankle. CLINICAL INDICATION: Injury. Pain. TECHNIQUE: Three views of the right ankle were performed. COMPARISON: None. FINDINGS: There is mild lateral malleolar subcutaneous soft tissue swelling. There is no underlying fracture. Joint relationships are maintained. Ankle mortise is intact. Bone mineralization is within normal limits. IMPRESSION: Lateral malleolar subcutaneous soft tissue swelling without underlying fracture. ED COURSE: The patient was given Sentinel The medication was well tolerated and the patient had market improvement in symptoms. The patient remained stable throughout ED course. MEDICAL DECISION MAKIN-year-old female presents with atraumatic right ankle pain and swelling. She requested x-rays, x-ray of the ankle and tib-fib were unremarkable. I discussed with her that I cannot rule out ligamentous injury, she would likely benefit from outpatient MRI. Patient was placed in Rufino wrap and crutches for comfort. She remained neurovascularly intact throughout her stay here in the department. No evidence of compartment syndrome, neurologic injury, vascular injury, open joint, open fracture, tendon laceration, or foreign body. Recommended Ortho/PCP follow-up in 1 week. Strict return precautions were discussed. PRESCRIPTIONS: Dosepak, ibuprofen SPECIALIST FOLLOW UP RECOMMENDED: None Patient has been advised to follow up with primary care in 1-2 days. Departure Diagnosis: Primary Impression: Ankle pain Chronicity: acute Laterality: right Qualified Codes: M25.571 - Pain in right ankle and joints of right foot Condition: Stable Patient Instructions: Sprain, Ankle, With X-Ray Referrals: [facility] 7 a.m.- 11 p.m. Every Day of the Week NO APPOINTMENT OR AUTHORIZATION NEEDED Additional Instructions: Paciente aconseja volver a Departamento de urgencias inmediatamente para sntomas nuevos o que empeoran . Paciente aconseja posteriores con el PCP en 1-2 sheehan. Si el paciente no tiene ninguna de atencin primaria pueden seguir con [facility] [address] [place] [address] o [facility] + [address] [address] MIMI DODGE PA-C Sep 14, 2018 03:58
== END | disposition home or self-care (01) ==
LOC: FTE 20:05
DX: M25.571 Pain in right ankle and joints of right foot (principal)
CPT/HCPCS: 73590; 73610; 81025; Z7502; Z7610